=== PATIENT | female | born 1995 | race African-American/Black ===

== ENCOUNTER 2017-04-29 16:08 | Emergency (ER) | payer OTHER ==
[2017-04-29 16:31] VITALS: BP 123/80
--- NOTE | 2017-04-29 16:48 | ED ---
Shortness of Breath - HPI Summary HPI Summary: 21 yr old with the complaint of palpitations, and SOB onset yesterday abruptly. She has felt winded at times. She feel and ache in the left forearm that comes and goes without exacerbation by movement. She did break her fall on the ice with left hand yesterday, but she did not have pain after this. The pain in the left forearm seemed to come and go with the palpitations, and it is not exacerbated by movement or touching the arm. She denies fever, chills, cough, pleuritic chest pain. She denies smoking, family history of blood clots. She did take a total four hour round trip to [facility] this past weekend. - History of Current Complaint Chief Complaint: UCGeneralIllness Time Seen by Provider: 04/29/17 16:19 - Allergy/Home Medications Allergies/Adverse Reactions: Allergies Allergy/AdvReac Type Severity Reaction Status Date / Time No Known Allergies Allergy Verified 04/29/17 16:25 Home Medications: Home Medications Albuterol HFA INHALER* [Ventolin HFA Inhaler*] 2 puff INH Q4H PRN 04/29/17 [ History Confirmed 04/29/17] Vmrvotx-Uaqkksyjukttl-Pjpatrsu [Excedrin Extra Strength] 1 tab PO ONCE PRN 04/29 [History Confirmed 04/29/17] PMH/Surg Hx/FS Hx/Imm Hx Sensory History: Denies: Hx Contacts or Glasses Opthamlomology History: Denies: Hx Contacts or Glasses Neurological History: Reports: Hx Migraine, Other Neuro Impairments/Disorders - hx of concussion, most recent 01/17 - Surgical History Hx Anesthesia Reactions: No Infectious Disease History: No Infectious Disease History: Denies: Traveled Outside the [place] in Last 30 Days - Family History Known Family History: Positive: None - Social History Occupation: Employed Full-time Alcohol Use: Occasionally Hx Substance Use: No Substance Use Type: Reports: None Hx Tobacco Use: No Smoking Status (MU): Never Smoked Tobacco Review of Systems Positive: Palpitations Positive: Shortness Of Breath All Other Systems Reviewed And Are Negative: Yes Physical Exam Triage Information Reviewed: Yes Vital Signs On Initial Exam: Initial Vitals Temp Pulse Resp BP Pulse Ox 99 F 103 20 123/80 100 04/29/17 16:26 04/29/17 16:26 04/29/17 16:26 04/29/17 16:26 04/29/17 16:26 Vital Signs Reviewed: Yes Appearance: Positive: Well-Appearing, No Pain Distress Skin: Positive: Warm Head/Face: Positive: Normal Head/Face Inspection Eyes: Positive: EOMI Neck: Positive: Nontender Respiratory/Lung Sounds: Positive: Clear to Auscultation, Breath Sounds Present Cardiovascular: Positive: RRR. Negative: Murmur Abdomen Description: Positive: Nontender Musculoskeletal: Positive: Strength/ROM Intact, Other - left hand and forearm, wrist without deformity, swelling, redness, or tenderness on palpation. Neurological: Positive: Sensory/Motor Intact, Alert, Oriented to Person Place, Time, CN Intact II-III Psychiatric: Positive: Normal - Edwar Coma Scale Best Eye Response: 4 - Spontaneous Best Motor Response: 6 - Obeys Commands Best Verbal Response: 5 - Oriented Coma Scale Total: 15 Diagnostics - Vital Signs Vital Signs Temp Pulse Resp BP Pulse Ox 04/29/17 16:26 99 F 103 20 123/80 100 - Laboratory Lab Statement: Any lab studies that have been ordered have been reviewed, and results considered in the medical decision making process. Course/Dx - Course Course Of Treatment: 21 yr old who signed out AMA refusing transfer to the ER by ambulance. Plan DC home in stable condition - Diagnoses Provider Diagnoses: Palpitations, Shortness of breath Discharge - Discharge Plan Condition: Good Disposition: AGAINST MEDICAL ADVICE [facility] -
== END 2017-04-29 16:45 | disposition left against medical advice (07) ==
LOC: UCCORT 16:08
DX: R00.2 Palpitations (principal); R06.02 Shortness of breath; R00.0 Tachycardia, unspecified; G43.909 Migraine, unspecified, not intractable, without status migrainosus; Z87.820 Personal history of traumatic brain injury
CPT/HCPCS: 99212; G0463

== ENCOUNTER 2017-05-05 14:23 | Emergency (ER) | payer OTHER ==
[2017-05-05 16:08] VITALS: BP 109/70
--- NOTE | 2017-05-05 16:32 | UC ---
Throat Pain/Nasal Nikolay HPI - HPI Summary HPI Summary: 21 yo female with brief illness over the weekend fever/chills/lewis/myalgias now with sore tongue - History of Current Complaint Chief Complaint: UCSkin Stated Complaint: TONGUE COMPLAINT Time Seen by Provider: 05/05/17 16:15 Hx Obtained From: Patient Hx Last Menstrual Period: 04/30/17 Onset/Duration: Gradual Onset, Lasting Hours Severity: Moderate Pain Intensity: 7 Pain Scale Used: 0-10 Numeric Cough: None - Epiglottits Risk Factors Epiglottis Risk Factors: Negative - Allergies/Home Medications Allergies/Adverse Reactions: Allergies Allergy/AdvReac Type Severity Reaction Status Date / Time No Known Allergies Allergy Verified 05/05/17 16:08 PMH/Surg Hx/FS Hx/Imm Hx Previously Healthy: Yes Respiratory History: Asthma - Surgical History Surgical History: Yes - Family History Known Family History: Positive: Hypertension Negative: Cardiac Disease, Diabetes, Respiratory Disease - Social History Alcohol Use: Occasionally Substance Use Type: None Smoking Status (MU): Never Smoked Tobacco Review of Systems Constitutional: Negative - no fever/chills x 24 hours Skin: Negative Eyes: Negative ENT: Negative Respiratory: Negative Cardiovascular: Negative Gastrointestinal: Negative Genitourinary: Negative Motor: Negative Neurovascular: Negative Musculoskeletal: Negative Neurological: Negative Psychological: Negative Is Patient Immunocompromised?: No All Other Systems Reviewed And Are Negative: Yes Physical Exam Triage Information Reviewed: Yes Appearance: Well-Appearing, No Pain Distress, Well-Nourished Vital Signs: Initial Vital Signs Temp 99.4 F 05/05/17 16:03 Pulse 91 05/05/17 16:03 Resp 16 05/05/17 16:03 BP 109/70 05/05/17 16:03 Pulse Ox 99 05/05/17 16:03 Vital Signs Reviewed: Yes Eyes: Positive: Conjunctiva Clear ENT: Positive: Hearing grossly normal, Pharynx normal, TMs normal, Other - tongue with two small patches of white curd like coating, tongue very red/ imflammed. Negative: Nasal congestion, Nasal drainage, TM bulging, TM dull, TM red, Tonsillar swelling, Tonsillar exudate, Trismus, Muffled voice, Hoarse voice , Dental tenderness, Sinus tenderness, Uvula midline Neck: Positive: Supple, Nontender, No Lymphadenopathy Respiratory: Positive: Lungs clear, Normal breath sounds, No respiratory distress, No accessory muscle use Cardiovascular: Positive: RRR, No Murmur Musculoskeletal: Positive: ROM Intact, No Edema Neurological: Positive: Alert Psychological Exam: Normal Skin Exam: Normal Throat Pain/Nasal Course/Dx - Differential Dx/Diagnosis Provider Diagnoses: glossitis. ? oral thrush Discharge - Discharge Plan Condition: Stable Disposition: HOME Prescriptions: Nystatin SUSPENSION* 500,000 units PO QID #[id number] Patient Education Materials: Oral Candidiasis (ED) Forms: *Work Release Referrals: No Primary Care Phys,[facility] [Primary Care Provider] - Additional Instructions: You have glossitis maybe thrush use the antfungal 4x day (swish as long as you can then swallow) for pain you can use benadryl elixer 5-15 ml swish and spit very couple of hours (don't swallow) recheck in one week if not better
== END 2017-05-05 16:43 | disposition home or self-care (01) ==
LOC: UCCORT 14:23
DX: K14.0 Glossitis (principal); J45.909 Unspecified asthma, uncomplicated
CPT/HCPCS: 99212; G0463